=== PATIENT | female | born 1970 | race Two or more races ===

== ENCOUNTER 2016-10-03 09:28 | Inpatient (IN) | payer MEDICAID ==
[~2016-10-03] VITALS: Ht 160 cm; Wt 86.1 kg
[2016-10-03] MEDS ORDERED: IBUPROFEN 600 MG TAB PO ONE (09:45)
[2016-10-03] MEDS ORDERED: SODIUM CHLORIDE 0.9% 1,000 ML IV ONE (10:38)
[2016-10-03 10:43] LABS: Basophils # (auto) 0 uL; Basophils % (auto) 0.1 % (0.0-2.0); DEFINITIVE VIEW TRANSMISSION; Eosinophils # (auto) 0 uL; Eosinophils % (auto) 0.2 % (0.0-7.0); Hematocrit 36.5 % (36.0-46.0); Hemoglobin 11.6 g/dL (12.2-16.2); Mean Corpuscular Hemoglobin 25.5 pg (28.0-32.0); Mean Corpuscular Hgb Conc. 31.7 g/dL (32.0-36.0); Mean Corpuscular Volume 80.5 fL (80.0-100.0); Mean Platelet Volume 9.1 fL (7.4-10.4); Monocytes # (auto) 0.9 uL; Monocytes % (auto) 10.8 % (0.0-12.0); Neutrophils # (auto) 6.1 uL; Neutrophils % (auto) 75.9 % (37.0-80.0); Platelet Count (auto) 260 10^3/uL (140-450); Red Cell Distribution Width 13.7 % (11.6-16.0)
[2016-10-03 10:45] LABS: Urine Bilirubin Negative (Negative); Urine Blood TRACE /uL (Negative); Urine Color Yellow (Yellow); Urine Glucose Normal (Normal); Urine Ketone Negative (Negative); Urine Nitrite Negative (Negative); Urine RBC 1 /hpf (0 - 4); Urine Squamous Epithelial Cell FEW /hpf (<5)
[2016-10-03] MEDS ORDERED: KETOROLAC TROMETH 30 MG/ML 1ML VIAL IV ONE (10:45)
[2016-10-03 10:58] LABS: Albumin 2.9 g/dL (3.4-5.0); Calcium 8.3 mg/dL (8.5-10.1); Potassium 3.5 mmol/L (3.5-5.1)
[2016-10-03 11:01] LABS: Bilirubin, Total 0.7 mg/dL (0.2-1.0); Total Protein 7.1 g/dL (6.4-8.2)
[2016-10-03] MEDS ORDERED: cefTRIAXone 1GM/50ML D5W 50 ML IV ONE (13:30)
[2016-10-03] MEDS ORDERED: AZITHROMYCIN 500MG/D5W 250ML 250 ML IV ONE (13:30)
[2016-10-03] MEDS ORDERED: DEXTROSE (50%) 50ML SYRG IV PRN (13:45)
[2016-10-03] MEDS ORDERED: ALBUTEROL SULF 2.5 MG/0.5ML(0.5%) NEB SOLN NEB PRN (13:45)
[2016-10-03] MEDS ORDERED: PROMETHAZINE HCL 25 MG/ML 1ML IV PRN (13:45)
[2016-10-03] MEDS ORDERED: LORazepam 0.5 MG TAB PO PRN (13:45)
[2016-10-03] MEDS ORDERED: HYDROcodone-ACET 5/325MG TAB PO PRN (13:45)
[2016-10-03] MEDS ORDERED: LEVOFLOXACIN 750MG 150 ML IV ONE (13:45)
[2016-10-03] MEDS ORDERED: OSELTAMIVIR 75 MG CAP PO ONE (13:45)
[2016-10-03] MEDS ORDERED: NITROGLYCERIN 0.4 MG SL TAB SL PRN (13:45)
[2016-10-03] MEDS ORDERED: TEMAZEPAM 15 MG CAP PO PRN (13:45)
[2016-10-03] MEDS ORDERED: MORPHINE SULF INJ 2 MG/ML SYRINGE 1ML IV PRN ×2 (13:45)
[2016-10-03] MEDS: ENOXAPARIN SOD 40 MG/0.4 ML SYRINGE SC SCH (15:39)
[2016-10-03] MEDS: CLINDAMYCIN 600MG IV 50 ML IV SCH ×2 (15:39→22:16)
[2016-10-03 17:00] VITALS: BP 99/55
[2016-10-03] MEDS: ACCU-CHEK COMFORT CURVE STRIP VI SCH (17:30)
[2016-10-03] MEDS: ALBUTEROL SULF 2.5 MG/0.5ML(0.5%) NEB SOLN NEB SCH (18:06)
[2016-10-03 20:00] VITALS: BP 139/70
[2016-10-03 22:00] VITALS: BP 139/70
[2016-10-03] MEDS: OSELTAMIVIR 75 MG CAP PO SCH (22:00)
[2016-10-03] MEDS: ACETAMINOPHEN 500 MG TAB PO PRN (23:37)
[2016-10-04] MEDS: ALBUTEROL SULF 2.5 MG/0.5ML(0.5%) NEB SOLN NEB SCH ×4 (00:37→20:06)
[2016-10-04 04:45] VITALS: BP 139/70
[2016-10-04 05:43] VITALS: BP 151/84
[2016-10-04] MEDS: CLINDAMYCIN 600MG IV 50 ML IV SCH (05:45)
[2016-10-04] MEDS: ACCU-CHEK COMFORT CURVE STRIP VI SCH ×2 (06:00)
[2016-10-04 09:00] VITALS: BP 142/72
[2016-10-04] MEDS: ACETAMINOPHEN 500 MG TAB PO PRN (09:34)
[2016-10-04] MEDS: ENOXAPARIN SOD 40 MG/0.4 ML SYRINGE SC SCH (09:35)
[2016-10-04] MEDS: LEVOFLOXACIN 750MG 150 ML IV SCH (09:35)
[2016-10-04] MEDS: OSELTAMIVIR 75 MG CAP PO SCH (09:36)
[2016-10-04 13:00] VITALS: BP 131/57
[2016-10-04] MEDS ORDERED: guaiFENesin-DEXTROMETHORPHAN 5ML SYR PO PRN (14:00)
[2016-10-04] MEDS: SODIUM CHLORIDE 0.9% 1,000 ML IV SCH (14:00)
[2016-10-04 17:00] VITALS: BP 151/77
[2016-10-04 22:00] VITALS: BP 145/69
[2016-10-05] MEDS: ALBUTEROL SULF 2.5 MG/0.5ML(0.5%) NEB SOLN NEB SCH ×4 (00:50→19:37)
[2016-10-05] MEDS: SODIUM CHLORIDE 0.9% 1,000 ML IV SCH (03:21)
[2016-10-05 05:00] VITALS: BP 130/69
[2016-10-05 06:44] LABS: Basophils # (auto) 0 uL; Basophils % (auto) 0.5 % (0.0-2.0); DEFINITIVE VIEW TRANSMISSION; Eosinophils # (auto) 0.1 uL; Eosinophils % (auto) 2.9 % (0.0-7.0); Hematocrit 33.7 % (36.0-46.0); Hemoglobin 10.6 g/dL (12.2-16.2); Lymphocytes # (auto) 1.5 uL; Lymphocytes % (auto) 29.4 % (10.0-50.0); Mean Corpuscular Hemoglobin 25.3 pg (28.0-32.0); Mean Corpuscular Hgb Conc. 31.4 g/dL (32.0-36.0); Mean Corpuscular Volume 80.6 fL (80.0-100.0); Mean Platelet Volume 8.6 fL (7.4-10.4); Monocytes # (auto) 0.7 uL; Monocytes % (auto) 14.6 % (0.0-12.0); Neutrophils # (auto) 2.7 uL; Neutrophils % (auto) 52.6 % (37.0-80.0); Platelet Count (auto) 230 10^3/uL (140-450); Red Cell Distribution Width 13.6 % (11.6-16.0); White Blood Cell 5.1 10^3/uL (4.4-10.8)
[2016-10-05 07:14] LABS: BUN/Creatinine Ratio 33.3; Calcium 8.1 mg/dL (8.5-10.1); Magnesium 2.2 mg/dL (1.6-2.6); Potassium 3.2 mmol/L (3.5-5.1)
[2016-10-05 09:00] VITALS: BP 137/74
[2016-10-05] MEDS: ENOXAPARIN SOD 40 MG/0.4 ML SYRINGE SC SCH (10:00)
[2016-10-05] MEDS: LEVOFLOXACIN 750MG 150 ML IV SCH (10:00)
[2016-10-05] MEDS ORDERED: POTASSIUM CHL 20 Meq TABLET PO ONE (11:45)
[2016-10-05 12:52] VITALS: BP 127/58
[2016-10-05 17:15] VITALS: BP 119/62
[2016-10-05 21:56] VITALS: BP 135/75
[2016-10-06 04:59] VITALS: BP 122/70
[2016-10-06] MEDS: ALBUTEROL SULF 2.5 MG/0.5ML(0.5%) NEB SOLN NEB SCH ×3 (06:47→18:00)
[2016-10-06 09:00] VITALS: BP 131/70
[2016-10-06] MEDS: ENOXAPARIN SOD 40 MG/0.4 ML SYRINGE SC SCH (09:27)
[2016-10-06] MEDS: LEVOFLOXACIN 750MG 150 ML IV SCH (09:27)
[2016-10-06 13:00] VITALS: BP 133/65
[2016-10-06 17:13] VITALS: BP 136/73
[2016-10-06 22:00] VITALS: BP 122/55
[2016-10-07] VITALS (7 sets, daily range): BP systolic 105–125; BP diastolic 55–71
[2016-10-07] MEDS: ALBUTEROL SULF 2.5 MG/0.5ML(0.5%) NEB SOLN NEB SCH ×4 (00:46→18:30)
[2016-10-07 06:23] LABS: Hemoglobin 10.8 g/dL (12.2-16.2)
[2016-10-07] MEDS: ENOXAPARIN SOD 40 MG/0.4 ML SYRINGE SC SCH (14:29)
[2016-10-07] MEDS: LEVOFLOXACIN 750MG 150 ML IV SCH (14:29)
[2016-10-07] MEDS: METHIMAZOLE 5 MG TAB PO SCH (21:43)
[2016-10-08 05:00] VITALS: BP 116/70
[2016-10-08] MEDS: ALBUTEROL SULF 2.5 MG/0.5ML(0.5%) NEB SOLN NEB SCH ×3 (06:00→13:25)
[2016-10-08 09:00] VITALS: BP 124/70
[2016-10-08] MEDS ORDERED: LEVO750T3 PO (09:36)
[2016-10-08] MEDS ORDERED: METH5TAB77 PO (09:36)
[2016-10-08 09:53] LABS: Basophils # (auto) 0 uL; Basophils % (auto) 0.4 % (0.0-2.0); DEFINITIVE VIEW TRANSMISSION; Eosinophils # (auto) 0.2 uL; Eosinophils % (auto) 4.3 % (0.0-7.0); Hematocrit 35.7 % (36.0-46.0); Hemoglobin 11.2 g/dL (12.2-16.2); Lymphocytes # (auto) 1.4 uL; Lymphocytes % (auto) 26.5 % (10.0-50.0); Mean Corpuscular Hemoglobin 25.1 pg (28.0-32.0); Mean Corpuscular Hgb Conc. 31.3 g/dL (32.0-36.0); Mean Corpuscular Volume 80.1 fL (80.0-100.0); Mean Platelet Volume 8.6 fL (7.4-10.4); Monocytes # (auto) 0.4 uL; Monocytes % (auto) 6.8 % (0.0-12.0); Neutrophils # (auto) 3.4 uL; Platelet Count (auto) 304 10^3/uL (140-450); Red Cell Distribution Width 13.9 % (11.6-16.0); White Blood Cell 5.4 10^3/uL (4.4-10.8)
[2016-10-08] MEDS: ENOXAPARIN SOD 40 MG/0.4 ML SYRINGE SC SCH (10:00)
[2016-10-08 10:14] LABS: Albumin 2.7 g/dL (3.4-5.0); BUN/Creatinine Ratio 26.1; Bilirubin, Total 0.2 mg/dL (0.2-1.0); Calcium 8.8 mg/dL (8.5-10.1)
[2016-10-08] MEDS: METHIMAZOLE 5 MG TAB PO SCH (10:31)
[2016-10-08] MEDS: LEVOFLOXACIN 750MG 150 ML IV SCH (10:31)
[2016-10-08 13:00] VITALS: BP 115/62
[2016-10-08 13:24] VITALS: BP 115/62
== END 2016-10-08 14:30 | disposition home or self-care (01) | DRG 720 ==
LOC: ER 09:45 → TELE 09:46 → TELE-EAST 15:07 → EAST 10-07 16:12 → TELE-EAST 10-07 17:41
PROVIDERS: ADMIT Internal Medicine; ATTEND Internal Medicine
PROC: 0GBG3ZX Excision of Left Thyroid Gland Lobe, Percutaneous Approach, Diagnostic (ICD-10-PCS; principal; 2016-10-07)
DX: A41.9 Sepsis, unspecified organism (principal); J18.9 Pneumonia, unspecified organism; M62.82 Rhabdomyolysis; E44.0 Moderate protein-calorie malnutrition; R73.9 Hyperglycemia, unspecified; D64.9 Anemia, unspecified; E87.6 Hypokalemia; E05.00 Thyrotoxicosis with diffuse goiter without thyrotoxic crisis or storm; Z80.49 Family history of malignant neoplasm of other genital organs; Z88.0 Allergy status to penicillin; Z68.33 Body mass index [BMI] 33.0-33.9, adult
CPT/HCPCS: 36415; 71020; 76536; 76942; 78014; 80048; 80053; 80061; 81001; 82962; 83036; 83735; 84132; 84439; 84443; 84481; 85014; 85018; 85025; 87040; 87070; 87077; 87186; 87205; 87400; 87880; 93005; 94640; 94761; 96361; 96365; 96375; J0696; J1885; J1956; J3490

== ENCOUNTER 2016-10-24 11:01 | Emergency (ER) | payer MEDICAID ==
[~2016-10-24] VITALS: Ht 160 cm; Wt 81.2 kg
[~2016-10-24 11:01] MED LIST: LEVO750T3 PO; METH5TAB77 PO
[2016-10-24 11:28] VITALS: BP 145/81
== END 2016-10-24 12:49 | disposition left against medical advice (07) ==
LOC: ER 11:01
DX: R05 Cough (principal); Z53.21 Procedure and treatment not carried out due to patient leaving prior to being seen by health care provider

== ENCOUNTER → 2017-08-17 | Outpatient (CLI) | payer MEDICAID ==
[~2017-08-17] MED LIST changes: +CAR3125T PO; +DOCU100C8 PO; +FURO40TA4 PO; -LEVO750T3 PO; +POTA20TA53 PO; +WARPRX PO
[2017-08-18 09:00] LABS: INR 1.28 (0.9-1.15)
== END | disposition home or self-care (01) ==
LOC: LAB 16:56
PROVIDERS: ATTEND Thoracic Surgery (Cardiothoracic Vascular Surgery)
DX: I42.9 Cardiomyopathy, unspecified (principal); I50.9 Heart failure, unspecified
CPT/HCPCS: 36415; 85610

== ENCOUNTER 2017-09-01 15:17 | Emergency (ER) | payer MEDICAID ==
[~2017-09-01] VITALS: Ht 157.5 cm; Wt 86.6 kg
[2017-09-01 15:19] VITALS: BP 122/72
[2017-09-01 16:05] LABS: Basophils # (auto) 0.1 uL; Hemoglobin 11.1 g/dL (12.2-16.2); Lymphocytes % (auto) 25.2 % (10.0-50.0); Monocytes # (auto) 0.7 uL; Neutrophils % (auto) 62.6 % (37.0-80.0)
[2017-09-01 16:06] LABS: Basophils % (auto) 1.1 % (0.0-2.0); Eosinophils # (auto) 0.3 uL; Eosinophils % (auto) 3.2 % (0.0-7.0); Hematocrit 35.2 % (36.0-46.0); Lymphocytes # (auto) 2.3 uL; Mean Corpuscular Hemoglobin 28.1 pg (28.0-32.0); Mean Corpuscular Hgb Conc. 31.6 g/dL (32.0-36.0); Monocytes % (auto) 7.9 % (0.0-12.0); Neutrophils # (auto) 5.8 uL; Platelet Count (auto) 260 10^3/uL (140-450); Red Blood Cells 3.95 10^6/uL (4.0-5.20); Red Cell Distribution Width 15.8 % (11.8-14.3); White Blood Cell 9.3 10^3/uL (4.4-10.8)
[2017-09-01 16:15] LABS: Alanine Aminotransferase 17 U/L (13-56); Albumin 3.3 g/dL (3.4-5.0); Alkaline Phosphatase 123 U/L (45-117); Anion Gap 8 (5-15); Aspartate Aminotransferase 13 U/L (15-37); Bilirubin, Total 0.3 mg/dL (0.2-1.0); Blood Urea Nitrogen 20 mg/dL (7-18); Calcium 8.2 mg/dL (8.5-10.1); Carbon Dioxide 25 mmol/L (21-32); Chloride 106 mmol/L (98-107); GFR African American 99 mL/min; GFR Non-African American 82 mL/min; Glucose 81 mg/dL (74-106); Magnesium 2.1 mg/dL (1.6-2.6); Sodium 139 mmol/L (136-145); Total Protein 8.1 g/dL (6.4-8.2)
== END 2017-09-01 18:57 | disposition left against medical advice (07) ==
LOC: ER 15:19
DX: R79.9 Abnormal finding of blood chemistry, unspecified (principal); Z53.21 Procedure and treatment not carried out due to patient leaving prior to being seen by health care provider
CPT/HCPCS: 36415; 80053; 83735; 83880; 84484; 85025

== ENCOUNTER 2024-11-16 08:33 | Inpatient (IN) | payer MEDICAID ==
[2024-11-16] VITALS (13 sets, daily range): BP systolic 150–183; BP diastolic 72–94; PULSE 86–108; RESP 16–34; TEMP 97.3–102.2; O2SAT 92–97
[~2024-11-16] VITALS: Ht 157.5 cm; Wt 108.8 kg
[~2024-11-16 08:33] MED LIST changes: -CAR3125T PO; +CARV-214 PO; +DOCU-265 PO; -DOCU100C8 PO; -METH5TAB77 PO; +METH5TAB98 PO; +POTA-220 PO; -POTA20TA53 PO; +WARF-196 PO; -WARPRX PO
[2024-11-16] MEDS: ACETAMINOPHEN 500 MG TAB or CAP PO ONE (09:14)
--- NOTE | 2024-11-16 09:31 | ED.PDOC ---
History of Present Illness HPI Comments 54Y F with PMHx CHF and PNA presents to ED for chief complaint chest pain x1day with cough and chills x5days. Pt states chest pain worsens with deep breathing and when laying down. No other symptoms reported. Chief Complaint: Chest Pain Time Seen by MD: 09:08 Primary Care Provider: UNKNOWN Reviewed Notes: Nurses Notes, Medications, Allergies Allergies: Coded Allergies: Penicillins (Verified Allergy, Unknown, 10/03/16) Home Meds Active Scripts Warfarin Sodium (Coumadin) 5 Mg Tab, 3 MG PO QPM for 30 Days, #18 TAB 0 Refills Prov:MILLIE MAYER MD 08/08/17 Potassium Chloride (Klor-Con M20) 20 Meq Tab, 20 MEQ PO DAILY for 30 Days, #30 TAB 0 Refills Prov:MILLIE MAYER MD 08/08/17 Methimazole (Methimazole) 5 Mg Tab, 10 MG PO DAILY for 30 Days, #60 TAB 0 Refills Prov:MILLIE MAYER MD 08/08/17 Furosemide (Furosemide) 40 Mg Tab, 40 MG PO DAILY for 30 Days, #30 TAB 0 Refills Prov:MILLIE MAYER MD 08/08/17 Docusate Sodium (Docusate Sodium) 100 Mg Cap, 100 MG PO DAILY for 30 Days, CAP Prov:MILLIE MAYER MD 08/08/17 Carvedilol (COREG) 3.125 Mg Tab, 3.125 MG PO Q12HR for 30 Days, #60 TAB 0 Refills Prov:MILLIE MAYER MD 08/08/17 Information Source: Patient Mode of Arrival: Ambulatory Severity: Mild Timing: Days Duration: Since onset Prehospital treatment: None Past Medical History PAST MEDICAL HISTORY: CHF, Thyroid Surgical History: BTL DOCK PUMPER History: No Pertinent DOCK PUMPER History Family History Family History: Unknown Social History Smoker: Non-Smoker Alcohol: Denies ETOH Use Drugs: Denies Drug Use Lives In: Home Constitutional: reports: chills; denies: diaphoresis, fatigue, fever, malaise, sweats, weakness, others EENTM: denies: blurred vision, double vision, ear bleeding, ear discharge, ear drainage, ear pain, ear ringing, eye pain, eye redness, hearing loss, mouth pain, mouth swelling, nasal discharge, nose bleeding, nose congestion, nose pain, photophobia, tearing, throat pain, throat swelling, voice changes, others Respiratory: reports: cough; denies: hemoptysis, orthopnea, SOB at rest, shor tness of breath, SOB with excertion, stridor, wheezing, others Cardiovascular: reports: chest pain; denies: dizzy spells, diaphoresis, Dyspnea on exertion, edema, irregular heart beat, left arm pain, lightheadedness, palpitations, PND, syncope, others Gastrointestinal: denies: abdomen distended, abdominal pain, blood streaked bowels, constipated, diarrhea, dysphagia, difficulty swallowing, hematemesis, melena, nausea, poor appetite, poor fluid intake, rectal bleeding, rectal pain, vomiting, others Genitourinary: denies: abnormal vagina bleeding, burning, dyspareunia, dysuria, flank pain, frequency, hematuria, incontinence, pain, , vagina discharge, urgency, others Neurological: denies: dizziness, fainting, headache, left sided numbness, left sided weakness, numbness, paresthesia, pre-existing deficit, right sided numbness, right sided weakness, seizure, speech problems, tingling, tremors, weakness, others Musculoskeletal: denies: back pain, gout, joint pain, joint swelling, muscle pain, muscle stiffness, neck pain, others Integumetry: denies: bruises, change in color, change in hair/nails, dryness, laceration, lesions, lumps, rash, wounds, others Allergic/Immunocompromised: denies: Difficulty Healing, Frequent Infections, Hives, Itching, others Hematologic/Lymphatic: denies: anemia, blood clots, easy bleeding, easy bruising, swollen glands, others Endocrine: denies: excessive hunger, excessive sweating, excessive thirst, excessive urination, flushing, intolerance to cold, intolerance to heat, unexplained weight gain, unexplained weight loss, others Psychiatric: denies: anxiety, bipolar disorder, depression, hopeless, panic disorder, schizophrenia, sleepless, suicidal, others All Other Systems: Reviewed and Negative Physical Exam General Appearance: No Apparent Distress, Normal HEENT: Normal ENT Inspection, Pharynx Normal, TMs Normal Neck: Full Range of Motion, Non-Tender, Normal, Normal Inspection Respiratory: Chest Non-Tender, Rhonchi (bilateral bases), Other (diminished lung sounds) Cardiovascular: No Murmur, No Gallop, Tachycardia Breast Exam: Deferred Gastrointestinal: No Organomegaly, Non Tender, Normal Bowel Sounds, Soft Genitalia: Deferred Pelvic: Deferred Rectal: Deferred Extremities: Leg edema (1+), No calf tenderness, Normal capillary refill, Normal inspection, Normal range of motion, Non-tender Musculoskeletal : Apperance: Normal Neurologic: Alert, physical optics teacher II-XII nml as Tested, No Motor Deficits, Normal Affect, Normal Mood, No Sensory Deficits Cerebellar Function: NOT DONE Reflexes: NOT DONE Skin: Dry, Normal Color, Warm Lymphatic: No Adenopathy Was a procedure done? Was a procedure done?: No EKG EKG #1: Pulse Rate (adult): 100 ST: Old, Ant, Infarct EKG #2: Pulse Rate (adult): 103 Comments sinus or ectopic atrial tachycardia anteroseptal infarct, age indeterminate Differential Dx Considerations may include: URI X-Ray, Labs, Meds, VS Vital Signs Date Time Temp Pulse Resp B/P (MAP) Pulse Ox O2 Delivery O2 Flow Rate FiO2 11/16/24 11:13 98.8 90 16 137/59 (85) 90 98.8 11/16/24 10:31 103 11/16/24 10:14 101.1 11/16/24 09:33 103 11/16/24 09:31 100 11/16/24 09:14 101.7 103 18 154/84 (107) 91 101.7 11/16/24 09:14 101 18 92 Room Air* 0 21 11/16/24 09:14 101.7 11/16/24 08:50 101.7 105 16 162/82 (108) 94 101.7 11/16/24 08:39 100 Lab Test 11/16/24 11:16 11/16/24 09:30 11/16/24 08:58 11/16/24 08:45 Range/Units Lactic Acid Level 1.0 0.4-2.0 mmol/L Troponin I High Sensitivity 24 20 22 </=34 ng/L Influenza Type A Antigen Negative Negative Influenza Type B Antigen Negative Negative SARS-CoV-2 Antigen (Rapid) Negative NEGATIVE White Blood Count 9.0 4.4-10.8 10^3/uL Red Blood Count 4.68 4.0-5.20 10^6/uL Hemoglobin 13.3 12.2-16.2 g/dL Hematocrit 39.7 36.0-46.0 % Mean Corpuscular Volume 85.0 80.0-100.0 fL Mean Corpuscular Hemoglobin 28.4 28.0-32.0 pg Mean Corpuscular Hemoglobin Concent 33.4 32.0-36.0 g/dL Red Cell Distribution Width 15.2 H 11.8-14.3 % Platelet Count 234 140-450 10^3/uL Mean Platelet Volume 7.9 6.9-10.8 fL Neutrophils (%) (Auto) 76.8 37.0-80.0 % Lymphocytes (%) (Auto) 14.1 10.0-50.0 % Monocytes (%) (Auto) 8.3 0.0-12.0 % Eosinophils (%) (Auto) 0.3 0.0-7.0 % Basophils (%) (Auto) 0.5 0.0-2.0 % Neutrophils # (Auto) 6.9 1.6-8.6 10 ^3/uL Lymphocytes # (Auto) 1.3 0.4-5.4 10 ^3/uL Monocytes # (Auto) 0.7 0-1.3 10 ^3/uL Eosinophils # (Auto) 0 0-0.8 10 ^3/uL Basophils # (Auto) 0 0-0.2 10 ^3/uL Nucleated Red Blood Cells 0.1 % Sodium Level 137 136-145 mmol/L Potassium Level 3.9 3.5-5.1 mmol/L Chloride Level 104 98-107 mmol/L Carbon Dioxide Level 21 20-31 mmol/L Anion Gap 12 5-15 Blood Urea Nitrogen 12 9-23 mg/dL Creatinine 0.61 0.550-1.02 mg/dL Glomerular Filtration Rate Calc 107 >90 mL/min BUN/Creatinine Ratio 19.7 10.0-20.0 Serum Glucose 130 H 74-106 mg/dL Calcium Level 8.8 8.7-10.4 mg/dL Total Bilirubin 0.8 0.2-1.0 mg/dL Aspartate Amino Transferase (AST) 25 13-40 U/L Alanine Aminotransferase (ALT) 32 7-40 U/L Alkaline Phosphatase 109 46-116 U/L B-Type Natriuretic Peptide 623.27 0-100 pg/mL Total Protein 7.6 5.7-8.2 g/dL Albumin 4.3 3.2-4.8 g/dL Current Medications Medications (Trade) Dose Ordered Sig/Codie Route Start Time Stop Time Status Last Admin Acetaminophen (Tylenol Tablet Or Capsule) 1,000 mg ONCE ONCE PO 11/16/24 09:00 11/16/24 09:01 DC 11/16/24 09:14 X-Ray, Labs, Meds, VS Comment This 54-year-old female presents secondary to shortness of breath. Physical exam was significant for minimal air entry to bilateral lower lobes with scattered rhonchi. Upper lobes had scattered wheezes. She was asked noted to be febrile, hypoxic and tachycardic during the sepsis pathway. She was given Rocephin IV and azithromycin p.o. for community-acquired pneumonia. She had provided 30 mL/kilogram IV bolus. She will be admitted for further workup management of her community-acquired pneumonia/sepsis Time of 1ST Reevaluation: 09:38 Reevaluation 1ST: Unchanged Patient Education/Counseling: Diagnosis, Treatment Family Education/Counseling: No Family Present Sepsis Sepsis Reasesment Focused Exam Sepsis focused exam: focus exam completed, time: Departure 1 Departure Time of Disposition: 12:46 Impression: Primary Impression: Sepsis Additional Impression: Pneumonia Disposition: ADMITTED INPATIENT Admit to: [facility] Condition: Fair Discharged With: Self Critical Care Note Critical Care Time?: No Stability Stability form required: No Heart Score Heart Score: Heart Score Response (Comments) Value History Slightly Suspicious 0 EKG Repolarization Disturb 1 Age 45-64 1 Risk Factors 1 or 2 risk factors 1 Troponin Normal limit 0 Total 3 I personally scribed for MARY DUKES MD ([email or web address]) on 11/16/24 at 09:31. Electronically submitted by Franchesca Baig ([employer]). I personally scribed for MARY DUKES MD ([email or web address]) on 11/16/24 at 10:31. Electronically submitted by Franchesca Baig ([employer]). MARY DUKES MD Nov 16, 2024 09:31
[2024-11-16 10:03] LABS: Basophils # (auto) 0 10 ^3/uL (0-0.2); Basophils % (auto) 0.5 % (0.0-2.0); Eosinophils # (auto) 0 10 ^3/uL (0-0.8); Eosinophils % (auto) 0.3 % (0.0-7.0); Hematocrit 39.7 % (36.0-46.0); Hemoglobin 13.3 g/dL (12.2-16.2); Lymphocytes # (auto) 1.3 10 ^3/uL (0.4-5.4); Lymphocytes % (auto) 14.1 % (10.0-50.0); Mean Corpuscular Hemoglobin 28.4 pg (28.0-32.0); Mean Corpuscular Hgb Conc. 33.4 g/dL (32.0-36.0); Monocytes # (auto) 0.7 10 ^3/uL (0-1.3); Monocytes % (auto) 8.3 % (0.0-12.0); Neutrophils # (auto) 6.9 10 ^3/uL (1.6-8.6); Neutrophils % (auto) 76.8 % (37.0-80.0); Nucleated Red Blood Cells % 0.1 %; Platelet Count (auto) 234 10^3/uL (140-450); Red Blood Cells 4.68 10^6/uL (4.0-5.20); Red Cell Distribution Width 15.2 % (11.8-14.3)
[2024-11-16 10:13] LABS: Alanine Aminotransferase 32 U/L (7-40); Albumin 4.3 g/dL (3.2-4.8); Alkaline Phosphatase 109 U/L (46-116); Anion Gap 12 (5-15); Aspartate Aminotransferase 25 U/L (13-40); BUN/Creatinine Ratio 19.7 (10.0-20.0); Blood Urea Nitrogen 12 mg/dL (9-23); Calcium 8.8 mg/dL (8.7-10.4); Carbon Dioxide 21 mmol/L (20-31); Chloride 104 mmol/L (98-107); Potassium 3.9 mmol/L (3.5-5.1); Sodium 137 mmol/L (136-145); Total Protein 7.6 g/dL (5.7-8.2)
[2024-11-16 10:14] LABS: Bilirubin, Total 0.8 mg/dL (0.2-1.0)
[2024-11-16 10:16] LABS: Glucose 130 mg/dL (74-106)
[2024-11-16 10:22] LABS: COVID19 ANTIGEN SOFIA FIA NEGATIVE (NEGATIVE); Rapid Influenza A Negative (Negative); Rapid Influenza B Negative (Negative)
[2024-11-16] MEDS: ACETAMINOPHEN 325 MG TAB PO ONE (13:03)
[2024-11-16] MEDS: cefTRIAXone 1GM/50ML D5W 50 ML IV ONE (13:03)
[2024-11-16] MEDS: FUROSEMIDE 20 MG TAB PO ONE (13:03)
[2024-11-16] MEDS: AZITHROMYCIN 250 MG TAB PO ONE (13:03)
[2024-11-16] MEDS: SODIUM CHLORIDE 0.9% 1,500 ML IV ONE (13:04)
--- NOTE | 2024-11-16 13:14 | DVH ---
CHEST RADIOGRAPH Indication: cough Technique: Single frontal view of the chest was obtained Comparison: None FINDINGS: Lines and Tubes: None Lungs: No focal consolidation. Pleura: No effusion. No pneumothorax. Cardiomediastinal contours: Unremarkable Bones: No acute osseous abnormality. IMPRESSION: No acute cardiopulmonary disease.
[2024-11-16] MEDS: diphenhdrAMINE HCL 50 MG/1 ML VL IV ONE (13:15)
[2024-11-16 13:29] LABS: Urine Bacteria None Seen /hpf (None Seen)
[2024-11-16 13:48] LABS: Urine Blood TRACE /uL (Negative); Urine Clarity Clear (Clear); Urine Color Yellow (Yellow); Urine Mucus FEW (None Seen); Urine Protein, UAD 1+ (Negative); Urine Squamous Epithelial Cell FEW /hpf (<5); Urine Urobilinogen Normal (Negative); Urine WBC 1 /HPF (0-5); Urine pH 5.5 (5.0-9.0)
[2024-11-16] MEDS: DOXYCYCLINE 100MG/100ML 100 ML IV ONE (14:32)
[2024-11-16] MEDS ORDERED: ONDANSETRON HCL 4 MG/2 ML VIAL IV PRN (15:15)
[2024-11-16] MEDS ORDERED: NITROGLYCERIN 0.4 MG SL TAB SL PRN (15:15)
[2024-11-16] MEDS ORDERED: MORPHINE SULFATE INJ 2 MG/ml SYRG IV PRN (15:15)
--- NOTE | 2024-11-16 15:31 | DVHHP2 ---
History of Present Illness Reason for Visit: Chest pain with shortness of breath History of Present Illness Margot Riddle is a 54-year-old female with past medical history of CHF, pulmonary hypertension, pneumonia, thyroid disease, bilateral tubal ligation, and CABG with tricuspid valve replacement with ring in 2011 who presents to the ED with shortness of breath and chest pain. Patient also reports productive cough with brownish phlegm and chills x5 days. Patient denies any lightheadedness, weakness, dizziness, abdominal pain, nausea, vomiting, diarrhea, recent sick contacts, recent travels, or ingestion of spoiled food. Cardiovascular: CHF Pulmonary: Pneumonia Endocrine: Hyperthyroidism Past Medical History Pulmonary hypertension Past Surgical History: CABG, Tubal Ligation Family History: Other (Grandma with uterine cancer) Smoke: No ALCOHOL: none Drugs: None Lives: with Family Domestic Violence: Neg Review of Systems Constitutional: Yes: Chills Respiratory: Cough, Shortness of breath, Sputum Cardiovascular: Chest Pain Allergies: Coded Allergies: Penicillins (Verified Allergy, Unknown, 10/03/16) Medications Current Medications Medications Dose Ordered Sig/Codie Route Start Time Stop Time Status Last Admin Dose Admin Ondansetron HCl 4 mg Q4HP PRN IV 11/16/24 15:15 Acetaminophen 650 mg Q6HP PRN PO 11/16/24 15:15 Morphine Sulfate 2 mg Q4HPRN PRN IV 11/16/24 15:15 Nitroglycerin 0.4 mg Q5MINP PRN SL 11/16/24 15:15 Morphine Sulfate 2 mg Q30M PRN IV 11/16/24 15:15 Doxycycline Hyclate 100 ml @ 50 mls/hr Q12HR IV 11/16/24 22:00 Albuterol 2.5 mg Q4HPRN PRN NEB 11/16/24 15:30 Ipratropium [place] 0.5 mg Q4HPRN PRN NEB 11/16/24 15:30 Exam Vital Signs Vital Signs Date Time Temp Pulse Resp B/P (MAP) Pulse Ox O2 Delivery O2 Flow Rate FiO2 11/16/24 14:10 98.7 88 18 153/86 (108) 93 98.7 11/16/24 14:10 Room Air* 0 21 General Appearance: Alert, Oriented X3, Cooperative, No acute distress HEENT: PERRLA, EOMI, Mucous membr. moist/pink Respiratory: Normal air movement Cardiovascular: Regular rate, Normal S1, Normal S2, No murmurs Abdominal: Normal bowel sounds, Soft Extremities: No clubbing, No cyanosis, No edema, Normal pulses Skin: No significant lesion Neuro: Normal gait, Normal speech, Strength at 5/5 X4 ext, Normal tone, Sensation intact Psych/Mental Status: Mental status NL, Mood NL Labs/Xrays Labs Test 11/16/24 11:16 11/16/24 10:39 11/16/24 08:58 11/16/24 08:45 Range/Units Lactic Acid Level 1.0 0.4-2.0 mmol/L Troponin I High Sensitivity 24 </=34 ng/L Urine Color Yellow Yellow Urine Clarity Clear Clear Urine pH 5.5 5.0-9.0 Urine Specific [place] 1.020 1.001-1.035 Urine Protein 1+ H Negative Urine Ketones 1+ H Negative Urine Blood Trace H Negative /uL Urine Nitrite Negative Negative Urine Bilirubin Negative Negative Urine Urobilinogen Normal Negative mg/dL Urine Leukocyte Esterase Negative Negative /uL Urine RBC <1 0 - 4 /hpf Urine Microscopic WBC 1 0-5 /HPF Urine Squamous Epithelial Cells Few <5 /hpf Urine Bacteria None seen None Seen /hpf Urine Mucus Few None Seen Urine Glucose Normal Normal mg/dL Influenza Type A Antigen Negative Negative Influenza Type B Antigen Negative Negative SARS-CoV-2 Antigen (Rapid) Negative NEGATIVE White Blood Count 9.0 4.4-10.8 10^3/uL Red Blood Count 4.68 4.0-5.20 10^6/uL Hemoglobin 13.3 12.2-16.2 g/dL Hematocrit 39.7 36.0-46.0 % Mean Corpuscular Volume 85.0 80.0-100.0 fL Mean Corpuscular Hemoglobin 28.4 28.0-32.0 pg Mean Corpuscular Hemoglobin Concent 33.4 32.0-36.0 g/dL Red Cell Distribution Width 15.2 H 11.8-14.3 % Platelet Count 234 140-450 10^3/uL Mean Platelet Volume 7.9 6.9-10.8 fL Neutrophils (%) (Auto) 76.8 37.0-80.0 % Lymphocytes (%) (Auto) 14.1 10.0-50.0 % Monocytes (%) (Auto) 8.3 0.0-12.0 % Eosinophils (%) (Auto) 0.3 0.0-7.0 % Basophils (%) (Auto) 0.5 0.0-2.0 % Neutrophils # (Auto) 6.9 1.6-8.6 10 ^3/uL Lymphocytes # (Auto) 1.3 0.4-5.4 10 ^3/uL Monocytes # (Auto) 0.7 0-1.3 10 ^3/uL Eosinophils # (Auto) 0 0-0.8 10 ^3/uL Basophils # (Auto) 0 0-0.2 10 ^3/uL Nucleated Red Blood Cells 0.1 % Sodium Level 137 136-145 mmol/L Potassium Level 3.9 3.5-5.1 mmol/L Chloride Level 104 98-107 mmol/L Carbon Dioxide Level 21 20-31 mmol/L Anion Gap 12 5-15 Blood Urea Nitrogen 12 9-23 mg/dL Creatinine 0.61 0.550-1.02 mg/dL Glomerular Filtration Rate Calc 107 >90 mL/min BUN/Creatinine Ratio 19.7 10.0-20.0 Serum Glucose 130 H 74-106 mg/dL Calcium Level 8.8 8.7-10.4 mg/dL Total Bilirubin 0.8 0.2-1.0 mg/dL Aspartate Amino Transferase (AST) 25 13-40 U/L Alanine Aminotransferase (ALT) 32 7-40 U/L Alkaline Phosphatase 109 46-116 U/L B-Type Natriuretic Peptide 623.27 0-100 pg/mL Total Protein 7.6 5.7-8.2 g/dL Albumin 4.3 3.2-4.8 g/dL CHEST RADIOGRAPH Indication: cough Technique: Single frontal view of the chest was obtained Comparison: None FINDINGS: Lines and Tubes: None Lungs: No focal consolidation. Pleura: No effusion. No pneumothorax. Cardiomediastinal contours: Unremarkable Bones: No acute osseous abnormality. IMPRESSION: No acute cardiopulmonary disease. Assessment/Plan Assessment/Plan Assessment Chest pain Dyspnea Rule out pneumonia Pyrexia Tachycardia History of CHF History of pulmonary hypertension History of pneumonia History of hyperthyroidism History of CABG and tricuspid valve replacement with ring History of bilateral tubal ligation Plan Admit to [facility] UA Flu negative COVID negative EKG Antihistamine NS 1.5 L given ED Antipyretics Azithromycin given ED Diuretics IV antibiotics-doxycycline Blood cultures Lactic Chest x-ray noted BNP Troponin negative x2 Duo nebs Last echo on 08/03/2017 EF less than 25% Echo ordered PT/INR Hemoglobin A1c TSH Lipid UDS Continue home medications DVT prophylaxis-patient on warfarin PUD prophylaxis-no history of GERD or GI bleed not indicated Discussed plan of care with patient and nurse Cardiology consult Plan discussed with: Patient My Orders Orders - RAIN WALLACE DIRECTOR MATERNAL CHILD Procedure Category Date Status Time Admit ADMIT 11/16/24 Transmitted 15:11 Allergies MAURICE 11/16/24 In Process 15:11 Code Status CODE 11/16/24 Transmitted 15:11 Ondansetron Hcl PHA 11/16/24 In Process (Zofran) 15:15 Complete Blood Count LAB 11/17/24 Verified 04:00 Comprehensive LAB 11/17/24 Verified Metabolic Panel 04:00 Cardiac DIET 11/16/24 Transmitted Diet-2gna,Lofat,Lochol Dinner Acetaminophen Tablet PHA 11/16/24 In Process (Tylenol Tablet) 15:15 Morphine Sulfate PHA 11/16/24 In Process Injection 15:15 Nitroglycerin PHA 11/16/24 In Process Sublingual (Ntrostat 15:15 Morphine Sulfate PHA 11/16/24 In Process Injection 15:15 Stat Ekg For Chest MAURICE 11/16/24 In Process Pain 15:11 Notify Of Changes MAURICE 11/16/24 In Process From Base 15:11 Forklift Wheel Loader For [facility] 11/16/24 In Process 24 Hours 15:11 Emergency Dysrhythmia MAURICE 11/16/24 In Process Protocol 15:11 Rhythm Strips Once MAURICE 11/16/24 In Process Every Shift 15:11 Oxygen By Nasal RT 11/16/24 Transmitted Cannula 15:11 Doxycycline PHA 11/16/24 In Process 100mg/100ml 22:00 Echo 2d Mode Cardiac US 11/16/24 Logged DOP 15:17 Thyroid Stimulating LAB 11/16/24 Logged Hormone 15:17 Lipid Panel LAB 11/16/24 Logged 15:17 Drug Screen LAB 11/16/24 Logged 15:17 Hemoglobin A1c LAB 11/16/24 Logged 15:17 Albuterol Medneb PHA 11/16/24 In Process (Ventolin Medneb) 15:30 Ipratropium Medneb PHA 11/16/24 In Process (Atrovent Medneb) 15:30 Carvedilol Tablet PHA 11/16/24 Transmitted (Coreg Tablet) 22:00 Docusate Sodium PHA 11/17/24 Transmitted Capsule (Colace 10:00 Furosemide Tablet PHA 11/17/24 Transmitted (Lasix Tablet) 10:00 Methimazole Tab PHA 11/17/24 Transmitted (Tapazole) 10:00 Potassium Er Tablet PHA 11/17/24 Transmitted (Klor-Con Tablet) 10:00 Warfarin Sodium PHA 11/16/24 Transmitted (Coumadin) 18:00 Date of Service: Nov 16, 2024 Billing Provider: RAIN WALLACE Common Visit Codes: [id number] INP/OBS CARE (HIGH) RAIN WALLACE Nov 16, 2024 15:31
[2024-11-16] MEDS: ASPirin-EC 81 mg tab PO SCH (16:13)
[2024-11-16 16:26] LABS: Triglycerides 117 mg/dL (< 150)
[2024-11-16 16:28] LABS: Cholesterol 157 mg/dL (< 200)
[2024-11-16 16:29] LABS: HDL Cholesterol 39 mg/dL (40-59); LDL Cholesterol 101 mg/dL (< 100)
[2024-11-16] MEDS: hydrALAZINE HCL 20 MG/ML VL IV ONE (16:52)
[2024-11-16] MEDS: ALBUTEROL SULF 2.5 MG/0.5ML(0.5%) NEB SOLN NEB PRN (17:20)
[2024-11-16] MEDS: IPRATROPIUM BROM 0.5 MG/2.5ML INH SOL NEB PRN (17:20)
[2024-11-16 17:39] LABS: INR 1.07 (0.9-1.15); Prothrombin Time 11.3 sec (9.3-11.8)
[2024-11-16] MEDS: WARFARIN SODIUM 2.5 MG TAB PO ONE (17:46)
[2024-11-16] MEDS: ACETAMINOPHEN 325 MG TAB PO PRN (18:15)
[2024-11-16 18:44] LABS: Partial Thromboplastin Time 29.5 SEC (24.5-34.5)
[2024-11-16 18:57] LABS: Amphetamine Screen, Urine Neg (NEGATIVE); Barbiturate Scree,Urine Neg (NEGATIVE); Benzodiazephine Screen, Urine Neg (NEGATIVE); Cannabinoid Screen, Urine Neg (NEGATIVE); Cocaine Screen, Urine Neg (NEGATIVE); Opiate Scree,Urine Neg (NEGATIVE); Phencyclidine Screen, Urine Neg (NEGATIVE)
[2024-11-16] MEDS: CARVEDILOL 3.125 MG TAB PO SCH (22:16)
[2024-11-16] MEDS: ATORVASTATIN 20 MG TAB PO SCH (22:16)
[2024-11-16] MEDS: DOXYCYCLINE 100MG/100ML 100 ML IV SCH (22:16)
[2024-11-17] VITALS (10 sets, daily range): BP systolic 122–138; BP diastolic 63–81; PULSE 81–89; RESP 16–18; TEMP 97.4–98.5; O2SAT 94–100
[2024-11-17 07:58] LABS: Basophils # (auto) 0.1 10 ^3/uL (0-0.2); Basophils % (auto) 0.6 % (0.0-2.0); Eosinophils # (auto) 0.1 10 ^3/uL (0-0.8); Eosinophils % (auto) 0.8 % (0.0-7.0); Hematocrit 36.2 % (36.0-46.0); Hemoglobin 12.3 g/dL (12.2-16.2); Lymphocytes # (auto) 1.2 10 ^3/uL (0.4-5.4); Lymphocytes % (auto) 14.1 % (10.0-50.0); Mean Corpuscular Hemoglobin 28.2 pg (28.0-32.0); Mean Corpuscular Hgb Conc. 33.9 g/dL (32.0-36.0); Mean Corpuscular Volume 83.2 fL (80.0-100.0); Monocytes # (auto) 0.7 10 ^3/uL (0-1.3); Monocytes % (auto) 8.4 % (0.0-12.0); Neutrophils # (auto) 6.7 10 ^3/uL (1.6-8.6); Neutrophils % (auto) 76.1 % (37.0-80.0); Platelet Count (auto) 233 10^3/uL (140-450); Red Blood Cells 4.35 10^6/uL (4.0-5.20); Red Cell Distribution Width 15.3 % (11.8-14.3); White Blood Cell 8.8 10^3/uL (4.4-10.8)
[2024-11-17 08:11] LABS: INR 1.08 (0.9-1.15); Partial Thromboplastin Time 30.8 SEC (24.5-34.5); Prothrombin Time 11.4 sec (9.3-11.8)
[2024-11-17 08:14] LABS: Alanine Aminotransferase 27 U/L (7-40); Alkaline Phosphatase 92 U/L (46-116); Anion Gap 11 (5-15); Calcium 8.9 mg/dL (8.7-10.4); Carbon Dioxide 24 mmol/L (20-31); Chloride 103 mmol/L (98-107); Sodium 138 mmol/L (136-145)
[2024-11-17 08:15] LABS: BUN/Creatinine Ratio 21.3 (10.0-20.0); Blood Urea Nitrogen 13 mg/dL (9-23); Total Protein 7.4 g/dL (5.7-8.2)
[2024-11-17 08:16] LABS: Albumin 4.1 g/dL (3.2-4.8); Aspartate Aminotransferase 28 U/L (13-40); Glucose 129 mg/dL (74-106); Potassium 3.3 mmol/L (3.5-5.1)
[2024-11-17 08:17] LABS: Bilirubin, Total 0.9 mg/dL (0.2-1.0)
[2024-11-17] MEDS: methIMAzole 5 MG TAB PO SCH (10:05)
[2024-11-17] MEDS: POTASSIUM CHL 20 Meq TABLET PO SCH (10:06)
[2024-11-17] MEDS: DOCUSATE SOD 100 MG CAP PO SCH (10:06)
[2024-11-17] MEDS: FUROSEMIDE 40 MG TAB PO SCH (10:07)
[2024-11-17] MEDS: WARFARIN SODIUM 5 MG TAB PO ONE (16:46)
--- NOTE | 2024-11-17 17:13 | DVHPN2 ---
Subjective Some cough and shortness of the breath Reviewed: Care Plan, H&P, Labs, Medications, Previous Orders, Radiology Changes from previous H/P or p: No Changes Cardiovascular: Chest Pain Respiratory: Cough, Shortness of breath, Sputum Objective Vitals Vital Signs Date Time Temp Pulse Resp B/P (MAP) Pulse Ox O2 Delivery O2 Flow Rate FiO2 11/17/24 16:56 98.2 81 18 122/67 (85) 99 98.2 11/17/24 10:05 Nasal Cannula 3.0 11/17/24 10:05 32 Intake/Output Intake and Output 11/17/24 07:00 Intake Total 2350 ml Balance 2350 ml Intake Oral 600 ml IV Total 1750 ml # Voids 1 General Appearance: Alert, Oriented X3, Cooperative, No acute distress HEENT: Atraumatic Lungs: Other (Crackles and decreased breath sound in the left lower field) Cardiovascular: Regular rate Abdomen: Normal bowel sounds, Soft, No tenderness Medications Current Medications Medications Dose Ordered Sig/Codie Route Start Time Stop Time Status Last Admin Dose Admin Ondansetron HCl 4 mg Q4HP PRN IV 11/16/24 15:15 Acetaminophen 650 mg Q6HP PRN PO 11/16/24 15:15 11/16/24 18:15 650 MG Morphine Sulfate 2 mg Q4HPRN PRN IV 11/16/24 15:15 Nitroglycerin 0.4 mg Q5MINP PRN SL 11/16/24 15:15 Morphine Sulfate 2 mg Q30M PRN IV 11/16/24 15:15 Albuterol 2.5 mg Q4HPRN PRN NEB 11/16/24 15:30 11/16/24 17:20 2.5 MG Ipratropium [place] 0.5 mg Q4HPRN PRN NEB 11/16/24 15:30 11/16/24 17:20 0.5 MG Carvedilol 3.125 mg Q12HR PO 11/16/24 22:00 11/17/24 10:07 3.125 MG Docusate Sodium 100 mg DAILY PO 11/17/24 10:00 11/17/24 10:06 100 MG Furosemide 40 mg DAILY PO 11/17/24 10:00 11/17/24 10:07 40 MG Methimazole 10 mg DAILY PO 11/17/24 10:00 11/17/24 10:05 10 MG Potassium Chloride 20 meq DAILY PO 11/17/24 10:00 11/17/24 10:06 20 MEQ Aspirin 81 mg DAILY PO 11/16/24 15:30 11/17/24 10:05 81 MG Atorvastatin Calcium 40 mg HS PO 11/16/24 22:00 11/16/24 22:16 40 MG Warfarin Sodium RX PROTOCOL PER PHARMACY PO 11/16/24 15:45 Levofloxacin/ Dextrose 100 ml @ 100 mls/hr DAILY IV 11/17/24 22:00 Laboratory Results Laboratory Tests 11/17/24 07:23 Chemistry Test 11/17/24 07:23 Albumin 4.1 g/dL (3.2-4.8) Calcium Level 8.9 mg/dL (8.7-10.4) Total Protein 7.4 g/dL (5.7-8.2) Coagulation Test 11/16/24 17:14 11/17/24 07:23 11/17/24 15:08 Prothrombin Time 11.3 sec (9.3-11.8) 11.4 sec (9.3-11.8) Prothrombin Time INR 1.07 (0.9-1.15) 1.08 (0.9-1.15) Activated Partial Thromboplast Time 29.5 SEC (24.5-34.5) 30.8 SEC (24.5-34.5) D-Dimer, Quantitative 1.09 mg/L FEU (0.0-0.49) H LFT Test 11/17/24 07:23 Alanine Aminotransferase (ALT) 27 U/L (7-40) Alkaline Phosphatase 92 U/L (46-116) Aspartate Amino Transferase (AST) 28 U/L (13-40) Total Bilirubin 0.9 mg/dL (0.2-1.0) HgA1c, TSH Test 11/16/24 17:14 Hemoglobin A1c 6.4 % A1C (<5.7) H Urinalysis Test 11/16/24 10:39 Urine Color Yellow (Yellow) Urine Clarity Clear (Clear) Urine pH 5.5 (5.0-9.0) Urine Specific [place] 1.020 (1.001-1.035) Urine Protein 1+ (Negative) H Urine Ketones 1+ (Negative) H Urine Blood Trace /uL (Negative) H Urine Nitrite Negative (Negative) Urine Bilirubin Negative (Negative) Urine Urobilinogen Normal mg/dL (Negative) Urine Leukocyte Esterase Negative /uL (Negative) Urine RBC <1 /hpf (0 - 4) Urine Microscopic WBC 1 /HPF (0-5) Urine Squamous Epithelial Cells Few /hpf (<5) Urine Bacteria None seen /hpf (None Seen) Urine Mucus Few (None Seen) Urine Glucose Normal mg/dL (Normal) Microbiology Microbiology Date/Time Source Procedure Growth Status 11/16/24 11:16 Blood Blood Culture - Preliminary NO GROWTH AFTER 24 HOURS OF INCUBATION. Resulted Assessment/Plan Assessment/Plan Chest pain and shortness of breath Possible pneumonia left lung Rule out PE Pulmonary hypertension Heart failure History of tricuspid regurg replacement Hyperthyroidism/did not take her methimazole for three weeks Prior history of pneumonia Plan: We will obtain D-dimer. If elevated then we will obtain chest CT angiogram. Change antibiotic to Levaquin. Discontinue doxycycline. Further plan per orders Plan discussed with: Patient, Daughter, Son, Other (Nursing) My Orders Orders - ADOLFO BULLARD MD Procedure Category Date Status Time Free T3 LAB 11/17/24 In Process 13:57 Free T4 (Free LAB 11/17/24 In Process Thyroxine) 13:57 Levofloxacin 500mg PHA 11/17/24 In Process (Levaquin 500mg/ 100m 22:[address] 11/17/24 Verified Contrast 17:09 Date of Service: Nov 17, 2024 Billing Provider: ADOLFO BULLARD MD Common Visit Codes: [id number] INP/OBS CARE(HIGH) ADOLFO BULLARD MD Nov 17, 2024 17:13
--- NOTE | 2024-11-17 18:21 | DVH ---
PROCEDURE: CT CT ANGIO CHEST CONTRAST 11/17/2024 05:39 PM INDICATION: ro pe COMPARISON: Radiograph dated 11/16/2024 TECHNIQUE: Coverage: Thorax IV contrast: Administered Phases: Arterial Multiplanar 3-D Maximum Intensity Projection images (MIP) reconstructions were created by the technmary kay ye in the coronal and sagittal planes as part of the CT angiography protocol. Adverse events: None Medication laboratory values were reviewed to verify the patient meets criteria for contrast administ ration. All CT scans at this medical facility are performed using dose modulation techniques as appropriate t o a performed exam including the following: Automated exposure control was utilized; adjustment of th e MA and/or KV according to patient size; and use of iterative reconstruction technique. Radiation dose: CTDIvol 27 mGy, DLP 952 mGy*cm. FINDINGS: Cardiovascular: No evidence of acute or chronic pulmonary emboli identified. Aorta is normal in calib er. Moderate cardiomegaly. Artificial cardiac valves noted. Median sternotomy wires and mediastinal vascular clips are seen. Lungs: Scattered bilateral pulmonary opacities are seen more prominent on the left side. No pleural e ffusion. No pneumothorax. The airways are patent. Thyroid: Unremarkable. Esophagus: Unremarkable. Lymphatics: No hilar or mediastinal lymphadenopathy. Bones/soft tissues: No acute abnormality. 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 Upper abdomen: No acute abnormality. Other: None. IMPRESSION: 1. No pulmonary emboli. 2. Bilateral multifocal pulmonary opacities, left greater than right may represent edema or atypical pneumonia. No pleural effusion. No interstitial edema. Recommend clinical and biochemical correlatio n. 3. Moderate cardiomegaly pulmonary venous congestion.
[2024-11-17] MEDS: IOHEXOL 350 MG/ML 100ML IJ ONE (18:51)
[2024-11-17] MEDS: levoFLOXacin 500MG 100 ML IV SCH (21:37)
[2024-11-18] VITALS (11 sets, daily range): BP systolic 111–166; BP diastolic 52–91; PULSE 76–93; RESP 16–20; TEMP 97.4–98.4; O2SAT 91–99
[2024-11-18] MEDS: MORPHINE SULFATE INJ 2 MG/ml SYRG IV PRN (01:52)
--- NOTE | 2024-11-18 02:22 | DVHSR ---
APPROVED REPORT EXAM: LIMITED Two-dimensional and M-mode echocardiogram with Doppler and color Doppler. Blood Pressure: 127/63 mmHg INDICATION SOB Surgery/Intervention Valve Replacement: Type: x2 CABG: RISK FACTORS Obesity: Height: 5' 2", Weight: 239 DIMENSIONS LVDd6.0 (3.8-5.7cm)LA (2D)4.4 (1.9-4.0cm)Aortic Root2.9 (2.0-3.7cm) LVDs5.2 (2.5-4.0cm)LA (MM) (1.9-4.0cm)Aortic Cusp Exc1.7 (1.5-2.0cm) EF (%) 25.0 (55-70%)Rt. Atrium4.7 (1.9-4.0cm)Asc. Aorta cm IVSd0.7 (0.7-1.1cm)RV (D) (1.8-2.4cm) PWd1.1 (0.7-1.1cm) Mitral Valve MitralMitral Stenosis E wave1.60m/sMV Mean GR.mmHg A wave0.80m/sMV Peak GR.mmHg E/A ratio2.02D MVAcm2 Aortic Valve Aortic ValveAortic Stenosis V10.50m/Yosef Mean GR.4mmHg V21.40m/Yosef Peak GR.8mmHg LVOT Diameter2.1 (1.8-2.4cm)Doppler AVA1.24cm2 Pulmonic Valve V20.70m/s Tricuspid Valve TR Velocity2.40m/s [id number] Other Information Quality : Technically LimitedRhythm : Technically limited study due to CABG. Conclusion DILATED LV SEVERE LV GLOBAL HYPOKINESIS LV EF ISONLY 25% BIO-PROSTHETIC MV FUNCTIONING WELL NORMAL AORTIC VALVE NO EFFUSION
[2024-11-18 07:14] LABS: Basophils # (auto) 0.1 10 ^3/uL (0-0.2); Basophils % (auto) 0.7 % (0.0-2.0); Eosinophils # (auto) 0.5 10 ^3/uL (0-0.8); Eosinophils % (auto) 5.2 % (0.0-7.0); Hematocrit 37.9 % (36.0-46.0); Hemoglobin 12.4 g/dL (12.2-16.2); Lymphocytes # (auto) 2.3 10 ^3/uL (0.4-5.4); Lymphocytes % (auto) 23.7 % (10.0-50.0); Mean Corpuscular Hemoglobin 27.4 pg (28.0-32.0); Mean Corpuscular Hgb Conc. 32.7 g/dL (32.0-36.0); Mean Corpuscular Volume 83.8 fL (80.0-100.0); Monocytes # (auto) 0.8 10 ^3/uL (0-1.3); Monocytes % (auto) 8.2 % (0.0-12.0); Neutrophils # (auto) 5.9 10 ^3/uL (1.6-8.6); Neutrophils % (auto) 62.2 % (37.0-80.0); Nucleated Red Blood Cells % 0.1 %; Platelet Count (auto) 261 10^3/uL (140-450); Red Blood Cells 4.52 10^6/uL (4.0-5.20); Red Cell Distribution Width 15.6 % (11.8-14.3); White Blood Cell 9.5 10^3/uL (4.4-10.8)
[2024-11-18 07:25] LABS: INR 1.09 (0.9-1.15); Partial Thromboplastin Time 29.9 SEC (24.5-34.5); Prothrombin Time 11.5 sec (9.3-11.8)
--- NOTE | 2024-11-18 16:59 | DVHPN2 ---
Subjective Better but still Some cough and shortness of the breath Reviewed: Care Plan, H&P, Labs, Medications, Previous Orders, Radiology Changes from previous H/P or p: No Changes Respiratory: Cough, Shortness of breath, Sputum Objective Vitals Vital Signs Date Time Temp Pulse Resp B/P (MAP) Pulse Ox O2 Delivery O2 Flow Rate FiO2 11/18/24 16:34 98.2 83 18 140/75 (96) 96 98.2 11/18/24 10:05 Nasal Cannula* 4 36 Intake/Output Intake and Output 11/18/24 07:00 Intake Total 2530 ml Balance 2530 ml Intake Oral 2330 ml IV Total 200 ml # Voids 9 # Bowel Movements 3 General Appearance: Alert, Oriented X3, Cooperative, No acute distress HEENT: Atraumatic Lungs: Other (Crackles and decreased breath sound in the left lower field) Cardiovascular: Regular rate Abdomen: Normal bowel sounds, Soft, No tenderness Medications Current Medications Medications Dose Ordered Sig/Codie Route Start Time Stop Time Status Last Admin Dose Admin Ondansetron HCl 4 mg Q4HP PRN IV 11/16/24 15:15 Acetaminophen 650 mg Q6HP PRN PO 11/16/24 15:15 11/16/24 18:15 650 MG Morphine Sulfate 2 mg Q4HPRN PRN IV 11/16/24 15:15 11/18/24 01:52 2 MG Nitroglycerin 0.4 mg Q5MINP PRN SL 11/16/24 15:15 Morphine Sulfate 2 mg Q30M PRN IV 11/16/24 15:15 Albuterol 2.5 mg Q4HPRN PRN NEB 11/16/24 15:30 11/16/24 17:20 2.5 MG Ipratropium [place] 0.5 mg Q4HPRN PRN NEB 11/16/24 15:30 11/16/24 17:20 0.5 MG Carvedilol 3.125 mg Q12HR PO 11/16/24 22:00 11/18/24 08:49 3.125 MG Docusate Sodium 100 mg DAILY PO 11/17/24 10:00 11/17/24 10:06 100 MG Furosemide 40 mg DAILY PO 11/17/24 10:00 11/18/24 10:14 40 MG Methimazole 10 mg DAILY PO 11/17/24 10:00 11/18/24 08:46 10 MG Potassium Chloride 20 meq DAILY PO 11/17/24 10:00 11/18/24 08:50 20 MEQ Aspirin 81 mg DAILY PO 11/16/24 15:30 11/18/24 08:48 81 MG Atorvastatin Calcium 40 mg HS PO 11/16/24 22:00 11/17/24 21:37 40 MG Warfarin Sodium RX PROTOCOL PER PHARMACY PO 11/16/24 15:45 Levofloxacin/ Dextrose 100 ml @ 100 mls/hr DAILY IV 11/17/24 22:00 11/18/24 08:49 100 MLS/HR Laboratory Results Laboratory Tests 11/17/24 07:23 11/18/24 07:00 Coagulation Test 11/18/24 07:00 Prothrombin Time 11.5 sec (9.3-11.8) Prothrombin Time INR 1.09 (0.9-1.15) Activated Partial Thromboplast Time 29.9 SEC (24.5-34.5) Urinalysis Test 11/16/24 10:39 Urine Color Yellow (Yellow) Urine Clarity Clear (Clear) Urine pH 5.5 (5.0-9.0) Urine Specific [place] 1.020 (1.001-1.035) Urine Protein 1+ (Negative) H Urine Ketones 1+ (Negative) H Urine Blood Trace /uL (Negative) H Urine Nitrite Negative (Negative) Urine Bilirubin Negative (Negative) Urine Urobilinogen Normal mg/dL (Negative) Urine Leukocyte Esterase Negative /uL (Negative) Urine RBC <1 /hpf (0 - 4) Urine Microscopic WBC 1 /HPF (0-5) Urine Squamous Epithelial Cells Few /hpf (<5) Urine Bacteria None seen /hpf (None Seen) Urine Mucus Few (None Seen) Urine Glucose Normal mg/dL (Normal) Microbiology Microbiology Date/Time Source Procedure Growth Status 11/16/24 11:16 Blood Blood Culture - Preliminary NO GROWTH AFTER 48 HOURS OF INCUBATION. Resulted Assessment/Plan Assessment/Plan Chest pain and shortness of breath Possible bilateral pneumonia with more on the left than the right No PE/ruled out with CT angio Pulmonary hypertension Heart failure History of tricuspid regurg replacement Hyperthyroidism/did not take her methimazole for three weeks Prior history of pneumonia Plan: Continue IV antibiotics. Possible home tomorrow if stay Plan discussed with: Patient, Other (Family at bedside and RN) My Orders Orders - ALEAH,ADOLFO E MD Procedure Category Date Status Time Ct Angio Chest CT 11/17/24 Resulted Contrast 17:09 Date of Service: Nov 18, 2024 Billing Provider: ADOLFO BULLARD MD Common Visit Codes: [id number] INP/OBS CARE(HIGH) ADOLFO BULLARD MD Nov 18, 2024 16:59
[2024-11-18] MEDS: WARFARIN SODIUM 2.5 MG TAB PO ONE (17:44)
[2024-11-19] VITALS (8 sets, daily range): BP systolic 120–147; BP diastolic 71–88; PULSE 67–100; RESP 17–20; TEMP 36.8; O2SAT 93–96
--- NOTE | 2024-11-19 06:51 | DVH ---
EXAM: XR Chest, 1 View CLINICAL INDICATION: fu TECHNIQUE: Frontal view of the chest. COMPARISON: XY CHEST XRAY 1 VIEW on DOS: 11/16/24 FINDINGS: LUNGS AND PLEURAL SPACES: See below. HEART: Cardiomegaly with mild congestion. MEDIASTINUM: Unremarkable. Normal mediastinal contour. BONES/JOINTS: Unremarkable. No acute fracture. OTHER FINDINGS: . IMPRESSION: Cardiomegaly with mild congestion.
[2024-11-19 07:00] LABS: Basophils # (auto) 0 10 ^3/uL (0-0.2); Basophils % (auto) 0.6 % (0.0-2.0); Eosinophils # (auto) 0.5 10 ^3/uL (0-0.8); Eosinophils % (auto) 6.9 % (0.0-7.0); Hematocrit 35.8 % (36.0-46.0); Hemoglobin 11.9 g/dL (12.2-16.2); Lymphocytes # (auto) 1.8 10 ^3/uL (0.4-5.4); Lymphocytes % (auto) 24.6 % (10.0-50.0); Mean Corpuscular Hemoglobin 28.1 pg (28.0-32.0); Mean Corpuscular Hgb Conc. 33.4 g/dL (32.0-36.0); Mean Corpuscular Volume 84.1 fL (80.0-100.0); Monocytes # (auto) 0.5 10 ^3/uL (0-1.3); Monocytes % (auto) 7.5 % (0.0-12.0); Neutrophils # (auto) 4.4 10 ^3/uL (1.6-8.6); Neutrophils % (auto) 60.4 % (37.0-80.0); Platelet Count (auto) 263 10^3/uL (140-450); Red Blood Cells 4.26 10^6/uL (4.0-5.20); White Blood Cell 7.3 10^3/uL (4.4-10.8)
[2024-11-19 07:02] LABS: INR 1.14 (0.9-1.15); Partial Thromboplastin Time 31.3 SEC (24.5-34.5); Prothrombin Time 11.9 sec (9.3-11.8)
[2024-11-19 07:03] LABS: Anion Gap 6 (5-15); Carbon Dioxide 30 mmol/L (20-31); Chloride 105 mmol/L (98-107); Potassium 3.8 mmol/L (3.5-5.1); Sodium 141 mmol/L (136-145)
[2024-11-19 07:09] LABS: BUN/Creatinine Ratio 26.2 (10.0-20.0); Blood Urea Nitrogen 16 mg/dL (9-23)
[2024-11-19 07:12] LABS: Glucose 119 mg/dL (74-106)
--- NOTE | 2024-11-19 09:03 | DVHPN2 ---
Progress Note - Dictate Date Seen: Nov 19, 2024 Subjective PT WITH ORGANIC HD SEVERE MR S/P MV REPLACEMENT SEVERE TR EF <30% NOW WITH SOB POSSIBLE PNEUMONIA vital signs Vital Sign Date Time Temp Pulse Resp B/P (MAP) Pulse Ox O2 Delivery O2 Flow Rate FiO2 11/19/24 08:14 Nasal Cannula* 1 24 11/19/24 06:56 96 11/19/24 05:00 97.3 67 17 120/71 (87) 97.3 Total Intake and Output 11/18/24 11/18/24 11/19/24 15:00 23:00 07:00 Intake Total 100 ml 2500 ml 600 ml Output Total 600 ml Balance 100 ml 1900 ml 600 ml medications Current Medications Medications Dose Ordered Sig/Codie Route Start Time Stop Time Status Last Admin Dose Admin Ondansetron HCl 4 mg Q4HP PRN IV 11/16/24 15:15 Acetaminophen 650 mg Q6HP PRN PO 11/16/24 15:15 11/16/24 18:15 650 MG Morphine Sulfate 2 mg Q4HPRN PRN IV 11/16/24 15:15 11/18/24 01:52 2 MG Nitroglycerin 0.4 mg Q5MINP PRN SL 11/16/24 15:15 Morphine Sulfate 2 mg Q30M PRN IV 11/16/24 15:15 Albuterol 2.5 mg Q4HPRN PRN NEB 11/16/24 15:30 11/16/24 17:20 2.5 MG Ipratropium [place] 0.5 mg Q4HPRN PRN NEB 11/16/24 15:30 11/16/24 17:20 0.5 MG Carvedilol 3.125 mg Q12HR PO 11/16/24 22:00 11/18/24 22:23 3.125 MG Docusate Sodium 100 mg DAILY PO 11/17/24 10:00 11/17/24 10:06 100 MG Furosemide 40 mg DAILY PO 11/17/24 10:00 11/18/24 10:14 40 MG Methimazole 10 mg DAILY PO 11/17/24 10:00 11/18/24 08:46 10 MG Potassium Chloride 20 meq DAILY PO 11/17/24 10:00 11/18/24 08:50 20 MEQ Aspirin 81 mg DAILY PO 11/16/24 15:30 11/18/24 08:48 81 MG Atorvastatin Calcium 40 mg HS PO 11/16/24 22:00 11/18/24 22:23 40 MG Warfarin Sodium RX PROTOCOL PER PHARMACY PO 11/16/24 15:45 Levofloxacin/ Dextrose 100 ml @ 100 mls/hr DAILY IV 11/17/24 22:00 11/18/24 08:49 100 MLS/HR laboratory and microbiology Laboratory Tests 11/19/24 05:56 Test 11/19/24 05:56 Range/Units Serum Glucose 119 H 74-106 mg/dL Problem List ORGANIC HD SEVERE MR S/P MV REPLACEMENT SEVERE TR EF <30% NOW WITH SOB POSSIBLE PNEUMONIA Assessment/Plan ACUTE DECOMPENSATION DIURESIS VERQUVO CONSIDER AICD Plan discussed with: Patient ISHAAN UPTON MD Nov 19, 2024 09:03
[2024-11-19] MEDS: VERQUVO 2.5 MG PO SCH (10:00)
[2024-11-19 10:36] LABS: Free T4 (Free Thyroxine) 1.85 ng/dL (0.89-1.76)
--- NOTE | 2024-11-19 11:05 | ECG ---
[facility] Test Date: 2024-11-16 Test Time: 09:33:10 Pat Name: MP HEALY Department: ED Room: [facility]3T A Gender: F Light Truck Driver: JAZIEL : 1970 Requested By: MARY DUKES Order Number: [id number] Reading MD: Tulio Corrales Measurements Intervals [place] Rate: 103 P: 261 NM: 109 QRS: 75 QRSD: 97 T: 17 QT: 373 QTc: 489 Interpretive Statements Sinus or ectopic atrial tachycardia Anteroseptal infarct, age indeterminate Electronically Signed On 11-21-2024 21:07:50 PDT by Tulio Corrales Please click the below link to view image of tracing.
--- NOTE | 2024-11-19 12:20 | ECG ---
[facility] Test Date: 2024-11-16 Test Time: 08:39:49 Pat Name: MP HEALY Department: ER Room: [facility]3T A Gender: F Nutritional Assistant: MAGY : 1970 Requested By: MARY DUKES Order Number: [id number] Reading MD: Tulio Corrales Measurements Intervals [place] Rate: 100 P: 229 IA: 124 QRS: 77 QRSD: 96 T: 18 QT: 382 QTc: 493 Interpretive Statements Sinus or ectopic atrial tachycardia Atrial premature complex Probable anteroseptal infarct, old Minimal ST depression, lateral leads Electronically Signed On 11-21-2024 21:06:28 PDT by Tulio Corrales Please click the below link to view image of tracing.
--- NOTE | 2024-11-19 13:25 | DVHDS2 ---
Discharge Summary Date of Admission Nov 16, 2024 at 15:11 Date of Discharge: Nov 19, 2024 Labs/Diagnostic Data: Laboratory Results Test 11/19/24 05:56 11/17/24 15:08 11/17/24 07:23 11/16/24 17:14 White Blood Count 7.3 10^3/uL (4.4-10.8) Red Blood Count 4.26 10^6/uL (4.0-5.20) Hemoglobin 11.9 g/dL (12.2-16.2) Hematocrit 35.8 % (36.0-46.0) Mean Corpuscular Volume 84.1 fL (80.0-100.0) Mean Corpuscular Hemoglobin 28.1 pg (28.0-32.0) Mean Corpuscular Hemoglobin Concent 33.4 g/dL (32.0-36.0) Red Cell Distribution Width 15.0 % (11.8-14.3) Platelet Count 263 10^3/uL (140-450) Mean Platelet Volume 8.0 fL (6.9-10.8) Neutrophils (%) (Auto) 60.4 % (37.0-80.0) Lymphocytes (%) (Auto) 24.6 % (10.0-50.0) Monocytes (%) (Auto) 7.5 % (0.0-12.0) Eosinophils (%) (Auto) 6.9 % (0.0-7.0) Basophils (%) (Auto) 0.6 % (0.0-2.0) Neutrophils # (Auto) 4.4 10 ^3/uL (1.6-8.6) Lymphocytes # (Auto) 1.8 10 ^3/uL (0.4-5.4) Monocytes # (Auto) 0.5 10 ^3/uL (0-1.3) Eosinophils # (Auto) 0.5 10 ^3/uL (0-0.8) Basophils # (Auto) 0 10 ^3/uL (0-0.2) Nucleated Red Blood Cells 0.0 % Prothrombin Time 11.9 sec (9.3-11.8) Prothrombin Time INR 1.14 (0.9-1.15) Activated Partial Thromboplast Time 31.3 SEC (24.5-34.5) Sodium Level 141 mmol/L (136-145) Potassium Level 3.8 mmol/L (3.5-5.1) Chloride Level 105 mmol/L (98-107) Carbon Dioxide Level 30 mmol/L (20-31) Anion Gap 6 (5-15) Blood Urea Nitrogen 16 mg/dL (9-23) Creatinine 0.61 mg/dL (0.550-1.02) Glomerular Filtration Rate Calc 107 mL/min (>90) BUN/Creatinine Ratio 26.2 (10.0-20.0) Serum Glucose 119 mg/dL (74-106) Calcium Level 9.0 mg/dL (8.7-10.4) D-Dimer, Quantitative 1.09 mg/L FEU (0.0-0.49) Free Thyroxine (T4) Calculated 1.85 ng/dL (0.89-1.76) Free Triiodothyronine (T3) pg/mL 3.00 pg/mL (2.3-4.2) Total Bilirubin 0.9 mg/dL (0.2-1.0) Aspartate Amino Transferase (AST) 28 U/L (13-40) Alanine Aminotransferase (ALT) 27 U/L (7-40) Alkaline Phosphatase 92 U/L (46-116) Total Protein 7.4 g/dL (5.7-8.2) Albumin 4.1 g/dL (3.2-4.8) Hemoglobin A1c 6.4 % A1C (<5.7) Test 11/16/24 11:16 11/16/24 10:39 11/16/24 08:58 11/16/24 08:45 Lactic Acid Level 1.0 mmol/L (0.4-2.0) Troponin I High Sensitivity 24 ng/L (</=34) Urine Color Yellow (Yellow) Urine Clarity Clear (Clear) Urine pH 5.5 (5.0-9.0) Urine Specific [place] 1.020 (1.001-1.035) Urine Protein 1+ (Negative) Urine Ketones 1+ (Negative) Urine Blood Trace /uL (Negative) Urine Nitrite Negative (Negative) Urine Bilirubin Negative (Negative) Urine Urobilinogen Normal mg/dL (Negative) Urine Leukocyte Esterase Negative /uL (Negative) Urine RBC <1 /hpf (0 - 4) Urine Microscopic WBC 1 /HPF (0-5) Urine Squamous Epithelial Cells Few /hpf (<5) Urine Bacteria None seen /hpf (None Seen) Urine Mucus Few (None Seen) Urine Glucose Normal mg/dL (Normal) Urine Opiates Screen Neg (NEGATIVE) Urine Fentanyl Screen Neg (NEGATIVE) Urine Barbiturates Screen Neg (NEGATIVE) Urine Phencyclidine Screen Neg (NEGATIVE) Urine Amphetamines Screen Neg (NEGATIVE) Urine Benzodiazepines Screen Neg (NEGATIVE) Urine Cocaine Screen Neg (NEGATIVE) Urine Cannabinoids Screen Neg (NEGATIVE) Influenza Type A Antigen Negative (Negative) Influenza Type B Antigen Negative (Negative) SARS-CoV-2 Antigen (Rapid) Negative (NEGATIVE) B-Type Natriuretic Peptide 623.27 pg/mL (0-100) Triglycerides Level 117 mg/dL (< 150) Cholesterol Level 157 mg/dL (< 200) LDL Cholesterol 101 mg/dL (< 100) HDL Cholesterol 39 mg/dL (40-59) Thyroid Stimulating Hormone (TSH) 0.21 uIU/mL (0.55-4.78) Other Laboratory Tests 11/19/24 05:56 Brief Hx & Hospital Course: Final diagnoses: Bilateral pneumonia with more on the left than the right No PE/ruled out with CT angio Pulmonary hypertension Heart failure History of tricuspid regurg replacement Hyperthyroidism/did not take her methimazole for three weeks Prior history of pneumonia Obesity Organic heart disease Severe MR s/p replacement She was tearted for pneumonia EF is <30% She ran out of methimazole She is better now O2 95% on RA DC home on po antibiotics Continue home meds f/u with PCP and cardiology outpatient for possible ICD Condition at Discharge: Stable Final Diagnosis/Problems List Bilateral pneumonia with more on the left than the right No PE/ruled out with CT angio Pulmonary hypertension Heart failure History of tricuspid regurg replacement Hyperthyroidism/did not take her methimazole for three weeks Prior history of pneumonia Obesity Organic heart disease Severe MR s/p replacement Discharge Disposition: Home SNF Discharge Will this Physician continue t: No Discharge Statement: "Patient was advised to return to the ER or call 911 if any headaches, dizziness, shortness of breath, chest pain, abdominal pain, bleeding, fevers, or worsening of medical condition. Patient was counseled about treatment plan, medications, possible side effects, patientverbalized understanding. All questions were answered to the best of my ability. This discharge took greater then 30 minutes in planning, reviewing documentation, counseling the patient, and discussing with other team members." ASSESSMENT ASSESSMENT Assessment Date of Service: Nov 19, 2024 Billing Provider: KEENAN CHEEMA MD Common Visit Codes: [id number] DISCH DAY >30min KEENAN CHEEMA MD Nov 19, 2024 13:25
[2024-11-19] MEDS ORDERED: CARV-214 OR (13:29)
[2024-11-19] MEDS ORDERED: ATOR-507 PO (13:29)
[2024-11-19] MEDS ORDERED: FURO1TAB31 PO (13:29)
[2024-11-19] MEDS ORDERED: WARF-66 PO (13:29)
[2024-11-19] MEDS ORDERED: LEVO750T40 PO (13:29)
[2024-11-19] MEDS ORDERED: METH-552 PO (13:29)
[2024-11-19] MEDS ORDERED: POTA-211 PO (13:33)
[2024-11-19] MEDS ORDERED: WARFARIN SODIUM 5 MG TAB PO ONE (17:00)
== END 2024-11-19 16:30 | disposition home or self-care (01) | DRG 133 ==
LOC: ER 08:39 → OVERFLOW 15:11 → TELE-WESTW 18:01
PROVIDERS: ADMIT Internal Medicine Geriatric Medicine; ATTEND Internal Medicine Geriatric Medicine
DX: J96.01 Acute respiratory failure with hypoxia (principal); I50.23 Acute on chronic systolic (congestive) heart failure; J15.69 Pneumonia due to other Gram-negative bacteria; I27.20 Pulmonary hypertension, unspecified; Z68.43 Body mass index [BMI] 50.0-59.9, adult; J15.9 Unspecified bacterial pneumonia; E66.9 Obesity, unspecified; E05.90 Thyrotoxicosis, unspecified without thyrotoxic crisis or storm; I07.1 Rheumatic tricuspid insufficiency; Z80.49 Family history of malignant neoplasm of other genital organs; Z98.51 Tubal ligation status; Z95.2 Presence of prosthetic heart valve; Z88.0 Allergy status to penicillin; Z87.01 Personal history of pneumonia (recurrent); Z95.1 Presence of aortocoronary bypass graft; Z79.899 Other long term (current) drug therapy; Z79.01 Long term (current) use of anticoagulants
CPT/HCPCS: 36415; 71045; 71275; 80048; 80053; 80061; 80307; 81001; 82565; 83036; 83605; 83880; 84439; 84443; 84481; 84484; 85025; 85379; 85610; 85730; 87040; 87426; 87804; 93005; 93306; 94640; 96365; G0378; J1956